=== PATIENT | female | born 1960 | race Two or more races ===

== ENCOUNTER 2022-05-18 11:34 | Outpatient (CLI) | payer OTHER | END 2022-05-18 11:36 | disposition home or self-care (01) | LOC: LAB 11:34 → EKG 11:34 → LAB 11:36 | DX: I10 Essential (primary) hypertension (principal); R07.9 Chest pain, unspecified ==

== ENCOUNTER 2022-05-29 05:37 | Day surgery (SDC) | payer OTHER ==
[~2022-05-29 05:37] MED LIST: COZAAR100 MG PO; D3 + K2 DOTS 11 EACH PO; FOLIC ACID0.8 M1 PO; HYDROCHLOROTHIA25 MG PO; JANUMET 50-1,01 EACH PO; SYNTHROID100 MCG PO; VENLAFAXINE HCL75 M2 PO
[2022-05-29] MEDS ORDERED: MACROBID 100 M100 MG PO (10:54)
[2022-05-29] MEDS ORDERED: ULTRACET PO (10:55)
== END 2022-05-29 12:25 | disposition home or self-care (01) ==
LOC: CIR.AMB 05:37
PROVIDERS: ATTEND Obstetrics & Gynecology Gynecology
DX: N81.10 Cystocele, unspecified (principal); N81.5 Vaginal enterocele; N39.3 Stress incontinence (female) (male); I10 Essential (primary) hypertension; E11.9 Type 2 diabetes mellitus without complications; Z20.822 Contact with and (suspected) exposure to COVID-19